=== PATIENT | male | born 1935 | race African-American/Black ===

== ENCOUNTER 2022-11-29 00:24 | Inpatient (IN) | payer MEDICARE, OTHER ==
[~2022-11-29] VITALS: Ht 170.2 cm; Wt 56.7 kg
[2022-11-29] MEDS ORDERED: METO25XL PO (00:45)
[2022-11-29] MEDS ORDERED: CLOP75TA60 PO (00:45)
[2022-11-29] MEDS ORDERED: ATOR40TA28 PO (00:45)
[2022-11-29] MEDS ORDERED: FURO40 PO (00:45)
[2022-11-29] MEDS ORDERED: CHOL25TA4 PO (00:45)
[2022-11-29] MEDS ORDERED: APIX5TAB PO (00:45)
[2022-11-29] MEDS ORDERED: HYDR-4723 PO (00:45)
[2022-11-29] MEDS ORDERED: MELA5TAB40 PO (00:45)
[2022-11-29] MEDS ORDERED: FAMO20 PO (00:45)
[2022-11-29] MEDS ORDERED: SPIR-37 PO (00:45)
[2022-11-29] MEDS ORDERED: TAMS-13 PO (00:45)
[2022-11-29 01:25] LABS: BASOPHILS % (AUTO) 0.8 % (0.0-2.0); EOSINOPHILS % (AUTO) 1.2 % (1.0-6.0); HEMATOCRIT 36.3 % (41-53); HEMOGLOBIN 11.5 g/dL (13.5-17.5); LYMPHOCYTES # (AUTO) 1.6 K/uL (1.0-4.8); LYMPHOCYTES % (AUTO) 7.8 % (22.0-44.0); MEAN CORPUSCULAR HEMOGLOBIN 28.3 pg (26.0-34.0); MEAN CORPUSCULAR HGB CONC 31.7 G/dL (31.0-37.0); MEAN CORPUSCULAR VOLUME 89 fL (80-100); MONOCYTES # (AUTO) 0.5 K/uL (0.1-1.0); MONOCYTES % (AUTO) 2.7 % (2.0-9.0); NEUTROPHILS # (AUTO) 17.5 K/uL (1.8-7.7); PLATELET COUNT (AUTO) 464 K/uL (150-450); RED BLOOD CELL COUNT(AUTO) 4.07 MIL/uL (4.50-5.90); RED CELL DISTRIBUTION WIDTH 15.5 % (11.5-14.5)
[2022-11-29 01:26] LABS: NEUTROPHILS % (AUTO) 87.5 % (40.0-70.0)
[2022-11-29 01:33] LABS: ANION GAP 10 mmol/L (8-16); CALCIUM, TOTAL 8.9 mg/dL (8.8-10.5); CARBON DIOXIDE 25 mmol/L (22-29); CHLORIDE 97 mmol/L (98-107); CREATININE 1.29 mg/dL (0.60-1.30); GLOMERULAR FILTR. RATE CALC > 60 mL/min (>60); GLUCOSE,RANDOM 116 mg/dL (70-110); POTASSIUM 4.2 mmol/L (3.5-5.1); SODIUM SERUM 132 mmol/L (136-145)
[2022-11-29 01:38] LABS: PROTHROMBIN TIME 11.1 SEC (9.4-11.6)
[2022-11-29 01:49] LABS: B-TYPE NATRIURETIC PEPTIDE 1230 pg/mL (0-100)
[2022-11-29 01:59] LABS: ALANINE AMINOTRANSFERASE 62 U/L (12-78); ALBUMIN 2.4 g/dL (3.4-5.0); ALKALINE PHOSPHATASE 153 U/L (46-116); ASPARTATE AMINOTRANSFERASE 58 U/L (15-37); BILIRUBIN,TOTAL 0.4 mg/dL (0.1-1.0); CREATINE KINASE, TOTAL ONLY 75 U/L (39-308); LIPASE 206 U/L (73-393); TOTAL PROTEIN, SERUM 6.9 g/dL (6.4-8.2)
[2022-11-29] MEDS ORDERED: AMIODARONE HCL 360 MG in DEXTROSE 5%-WATER 242.8 ML IV ONE (02:15)
[2022-11-29] MEDS ORDERED: ONDANSETRON HCL 4 MG/2 ML VIAL IVP PRN (04:00)
[2022-11-29] MEDS ORDERED: ACETAMINOPHEN 325 MG TABLET PO PRN (04:00)
[2022-11-29] MEDS ORDERED: MELATONIN 5 MG TABLET PO PRN (04:00)
[2022-11-29] MEDS ORDERED: AMIODARONE HCL 50 MG/ML 3 ML VIAL IV ONE (04:15)
[2022-11-29 04:26] LABS: COVID AG,FIA SOURCE NASOPHARYNGEAL
[2022-11-29] MEDS ORDERED: AMIODARONE HCL IV ONE (04:30)
[2022-11-29] MEDS ORDERED: WATER IV ONE (04:30)
[2022-11-29] MEDS ORDERED: AMIODARONE HCL 150 MG in DEXTROSE 5%-WATER 97 ML IV ONE (04:30)
[2022-11-29] MEDS ORDERED: DEXTROSE 5% IV ONE (04:30)
[2022-11-29] MEDS ORDERED: METOPROLOL SUCCINATE 25 MG ER TABLET PO SCH (04:30)
[2022-11-29] MEDS ORDERED: MAGNESIUM SULFATE 4 GM/WATER 100 ML IV PRN (04:45)
[2022-11-29] MEDS ORDERED: POTASSIUM CHLORIDE 20 MEQ ER TABLET PO PRN (04:45)
[2022-11-29] MEDS ORDERED: MAGNESIUM SULFATE 2 GM/WATER 50 ML IV PRN (04:45)
[2022-11-29] MEDS ORDERED: MAGNESIUM OXIDE 400 MG TABLET PO PRN (04:45)
[2022-11-29] MEDS ORDERED: POTASSIUM CHL 10 MEQ/WATER 50 ML IV PRN (04:45)
[2022-11-29] MEDS ORDERED: METOPROLOL TARTRATE 25 MG TABLET PO SCH (05:30)
[2022-11-29] MEDS: METOPROLOL TARTRATE 25 MG TABLET PO SCH ×2 (06:15→20:20)
[2022-11-29] MEDS: CefTRIAXone 1 GM/DEXTROSE 50 ML IV SCH (06:15)
[2022-11-29] MEDS ORDERED: HEPARIN SODIUM,PORCINE 5,000 UNITS/ML VIAL SQ SCH (08:00)
[2022-11-29] MEDS ORDERED: AMIODARONE HCL 540 MG in DEXTROSE 5%-WATER 239.2 ML IV ONE ×2 (08:15→10:00)
[2022-11-29] MEDS ORDERED: CefTRIAXone 1 GM/DEXTROSE 50 ML IV SCH (09:30)
[2022-11-29] MEDS: ATORVASTATIN CALCIUM 40 MG TABLET PO SCH (11:06)
[2022-11-29] MEDS: CHOLECALCIFEROL (VIT D3) 1,000 UNITS [25 MCG] TABLET PO SCH (11:06)
[2022-11-29] MEDS: FUROSEMIDE 20 MG/2 ML VIAL IVP SCH ×2 (11:06→20:20)
[2022-11-29] MEDS: DOCUSATE SODIUM 100 MG CAPSULE PO SCH ×2 (11:06→20:20)
[2022-11-29] MEDS: CLOPIDOGREL BISULFATE 75 MG TABLET PO SCH (11:06)
[2022-11-29] MEDS: APIXABAN 5 MG TABLET PO SCH ×2 (11:06→20:20)
[2022-11-29] MEDS: FAMOTIDINE 20 MG TABLET PO SCH (11:06)
[2022-11-29] MEDS: SPIRONOLACTONE 25 MG TABLET PO SCH (11:11)
[2022-11-29 12:00] VITALS: BP 126/76
[2022-11-29] MEDS ORDERED: HYALURONIDASE, HUMAN RECOMB. 150 UNITS/ML ID ONE ×3 (12:00→13:00)
[2022-11-29] MEDS: DOXYCYCLINE HYCLATE 100 MG in DEXTROSE 5%-WATER 100 ML IV SCH (14:00)
[2022-11-29] MEDS ORDERED: SODIUM CHLORIDE 0.9% 250 ML IV ONE (16:30)
[2022-11-29 20:11] VITALS: BP 118/86
[2022-11-29] MEDS: TAMSULOSIN HCL 0.4 MG CAPSULE PO SCH (20:20)
[2022-11-30] VITALS (7 sets, daily range): BP systolic 96–106; BP diastolic 50–61
[2022-11-30] MEDS: DOXYCYCLINE HYCLATE 100 MG in DEXTROSE 5%-WATER 100 ML IV SCH ×2 (01:33→14:13)
[2022-11-30] MEDS ORDERED: AMIODARONE HCL 750 MG in DEXTROSE 5%-WATER 485 ML IV SCH ×2 (02:30→04:00)
[2022-11-30] MEDS: CefTRIAXone 1 GM/DEXTROSE 50 ML IV SCH (04:54)
[2022-11-30] MEDS: METOPROLOL TARTRATE 25 MG TABLET PO SCH ×2 (08:19→20:43)
[2022-11-30] MEDS: ATORVASTATIN CALCIUM 40 MG TABLET PO SCH (08:19)
[2022-11-30] MEDS: SPIRONOLACTONE 25 MG TABLET PO SCH (08:19)
[2022-11-30] MEDS: CLOPIDOGREL BISULFATE 75 MG TABLET PO SCH (08:19)
[2022-11-30] MEDS: CHOLECALCIFEROL (VIT D3) 1,000 UNITS [25 MCG] TABLET PO SCH (08:19)
[2022-11-30] MEDS: FUROSEMIDE 20 MG/2 ML VIAL IVP SCH ×2 (08:19→20:43)
[2022-11-30] MEDS: FAMOTIDINE 20 MG TABLET PO SCH (08:19)
[2022-11-30] MEDS: APIXABAN 5 MG TABLET PO SCH (08:19)
[2022-11-30] MEDS: DOCUSATE SODIUM 100 MG CAPSULE PO SCH ×2 (08:19→20:43)
[2022-11-30 10:12] LABS: BASOPHILS % (AUTO) 0.6 % (0.0-2.0); EOSINOPHILS % (AUTO) 0.7 % (1.0-6.0); HEMATOCRIT 34.3 % (41-53); HEMOGLOBIN 10.8 g/dL (13.5-17.5); LYMPHOCYTES # (AUTO) 0.9 K/uL (1.0-4.8); MEAN CORPUSCULAR HEMOGLOBIN 28.1 pg (26.0-34.0); MEAN CORPUSCULAR HGB CONC 31.6 G/dL (31.0-37.0); MEAN CORPUSCULAR VOLUME 89 fL (80-100); MONOCYTES # (AUTO) 0.5 K/uL (0.1-1.0); MONOCYTES % (AUTO) 5.7 % (2.0-9.0); NEUTROPHILS # (AUTO) 7.6 K/uL (1.8-7.7); PLATELET COUNT (AUTO) 440 K/uL (150-450); RED BLOOD CELL COUNT(AUTO) 3.86 MIL/uL (4.50-5.90); RED CELL DISTRIBUTION WIDTH 15.3 % (11.5-14.5)
[2022-11-30 10:32] LABS: ALANINE AMINOTRANSFERASE 49 U/L (12-78); ALBUMIN 2.3 g/dL (3.4-5.0); ALKALINE PHOSPHATASE 134 U/L (46-116); ANION GAP 9 mmol/L (8-16); ASPARTATE AMINOTRANSFERASE 44 U/L (15-37); BILIRUBIN,TOTAL 0.6 mg/dL (0.1-1.0); CALCIUM, TOTAL 8.2 mg/dL (8.8-10.5); CARBON DIOXIDE 25 mmol/L (22-29); CHLORIDE 98 mmol/L (98-107); CREATININE 1.03 mg/dL (0.60-1.30); GLOMERULAR FILTR. RATE CALC > 60 mL/min (>60); GLUCOSE,RANDOM 102 mg/dL (70-110); POTASSIUM 3.6 mmol/L (3.5-5.1); SODIUM SERUM 132 mmol/L (136-145); TOTAL PROTEIN, SERUM 6.3 g/dL (6.4-8.2)
[2022-11-30] MEDS ORDERED: SODIUM CHLORIDE 0.9% 250 ML IV ONE (14:08)
[2022-11-30] MEDS: APIXABAN 2.5 MG TABLET PO SCH (20:43)
[2022-11-30] MEDS: AMIODARONE HCL 200 MG TABLET PO SCH (20:43)
[2022-11-30] MEDS: TAMSULOSIN HCL 0.4 MG CAPSULE PO SCH (20:43)
[2022-12-01] VITALS (7 sets, daily range): BP systolic 92–140; BP diastolic 54–72
[2022-12-01] MEDS: DOXYCYCLINE HYCLATE 100 MG in DEXTROSE 5%-WATER 100 ML IV SCH ×2 (02:15→15:24)
[2022-12-01] MEDS: CefTRIAXone 1 GM/DEXTROSE 50 ML IV SCH (06:09)
[2022-12-01 06:53] LABS: ALANINE AMINOTRANSFERASE 49 U/L (12-78); ALBUMIN 2.2 g/dL (3.4-5.0); ALKALINE PHOSPHATASE 144 U/L (46-116); ANION GAP 2 mmol/L (8-16); ASPARTATE AMINOTRANSFERASE 47 U/L (15-37); BILIRUBIN,TOTAL 0.4 mg/dL (0.1-1.0); CALCIUM, TOTAL 8.4 mg/dL (8.8-10.5); CARBON DIOXIDE 30 mmol/L (22-29); CHLORIDE 98 mmol/L (98-107); CREATININE 1.23 mg/dL (0.60-1.30); GLOMERULAR FILTR. RATE CALC > 60 mL/min (>60); GLUCOSE,RANDOM 93 mg/dL (70-110); POTASSIUM 4.3 mmol/L (3.5-5.1); SODIUM SERUM 130 mmol/L (136-145); TOTAL PROTEIN, SERUM 5.9 g/dL (6.4-8.2)
[2022-12-01] MEDS: FUROSEMIDE 20 MG/2 ML VIAL IVP SCH ×2 (10:23→21:00)
[2022-12-01] MEDS: SPIRONOLACTONE 25 MG TABLET PO SCH (10:23)
[2022-12-01] MEDS: APIXABAN 2.5 MG TABLET PO SCH ×2 (10:24→20:39)
[2022-12-01] MEDS: METOPROLOL TARTRATE 25 MG TABLET PO SCH ×2 (10:24→21:59)
[2022-12-01] MEDS: ATORVASTATIN CALCIUM 40 MG TABLET PO SCH (10:24)
[2022-12-01] MEDS: DOCUSATE SODIUM 100 MG CAPSULE PO SCH ×2 (10:24→20:39)
[2022-12-01] MEDS: CHOLECALCIFEROL (VIT D3) 1,000 UNITS [25 MCG] TABLET PO SCH (10:25)
[2022-12-01] MEDS: AMIODARONE HCL 200 MG TABLET PO SCH ×2 (10:25→21:58)
[2022-12-01] MEDS: CLOPIDOGREL BISULFATE 75 MG TABLET PO SCH (10:25)
[2022-12-01] MEDS: FAMOTIDINE 20 MG TABLET PO SCH (10:25)
[2022-12-01] MEDS: TAMSULOSIN HCL 0.4 MG CAPSULE PO SCH (20:39)
[2022-12-02 00:22] VITALS: BP 112/62
[2022-12-02] MEDS: CefTRIAXone 1 GM/DEXTROSE 50 ML IV SCH (01:59)
[2022-12-02] MEDS: DOXYCYCLINE HYCLATE 100 MG in DEXTROSE 5%-WATER 100 ML IV SCH ×2 (02:38→15:07)
[2022-12-02 05:47] VITALS: BP 100/54
[2022-12-02 08:00] VITALS: BP 99/54
[2022-12-02] MEDS: APIXABAN 2.5 MG TABLET PO SCH (08:10)
[2022-12-02] MEDS: ATORVASTATIN CALCIUM 40 MG TABLET PO SCH (08:10)
[2022-12-02] MEDS: DOCUSATE SODIUM 100 MG CAPSULE PO SCH (08:10)
[2022-12-02] MEDS: AMIODARONE HCL 200 MG TABLET PO SCH (08:12)
[2022-12-02] MEDS: METOPROLOL TARTRATE 25 MG TABLET PO SCH (08:12)
[2022-12-02] MEDS: SPIRONOLACTONE 25 MG TABLET PO SCH (08:12)
[2022-12-02] MEDS: CLOPIDOGREL BISULFATE 75 MG TABLET PO SCH (08:13)
[2022-12-02] MEDS: CHOLECALCIFEROL (VIT D3) 1,000 UNITS [25 MCG] TABLET PO SCH (08:13)
[2022-12-02] MEDS: FAMOTIDINE 20 MG TABLET PO SCH (08:13)
[2022-12-02] MEDS: FUROSEMIDE 20 MG/2 ML VIAL IVP SCH (09:00)
[2022-12-02 11:50] VITALS: BP 104/52
[2022-12-02 11:50] LABS: BASOPHILS % (AUTO) 0.6 % (0.0-2.0); EOSINOPHILS % (AUTO) 0.4 % (1.0-6.0); HEMATOCRIT 32.9 % (41-53); HEMOGLOBIN 10.6 g/dL (13.5-17.5); LYMPHOCYTES # (AUTO) 1.3 K/uL (1.0-4.8); LYMPHOCYTES % (AUTO) 11.2 % (22.0-44.0); MEAN CORPUSCULAR HEMOGLOBIN 28.6 pg (26.0-34.0); MEAN CORPUSCULAR HGB CONC 32.2 G/dL (31.0-37.0); MEAN CORPUSCULAR VOLUME 89 fL (80-100); MONOCYTES # (AUTO) 0.8 K/uL (0.1-1.0); MONOCYTES % (AUTO) 6.7 % (2.0-9.0); NEUTROPHILS # (AUTO) 9.5 K/uL (1.8-7.7); NEUTROPHILS % (AUTO) 81.1 % (40.0-70.0); PLATELET COUNT (AUTO) 416 K/uL (150-450); RED BLOOD CELL COUNT(AUTO) 3.71 MIL/uL (4.50-5.90)
[2022-12-02 12:09] LABS: ALANINE AMINOTRANSFERASE 44 U/L (12-78); ALBUMIN 2.2 g/dL (3.4-5.0); ALKALINE PHOSPHATASE 138 U/L (46-116); ANION GAP 1 mmol/L (8-16); ASPARTATE AMINOTRANSFERASE 40 U/L (15-37); BILIRUBIN,TOTAL 0.3 mg/dL (0.1-1.0); CALCIUM, TOTAL 8.7 mg/dL (8.8-10.5); CARBON DIOXIDE 31 mmol/L (22-29); CHLORIDE 99 mmol/L (98-107); CREATININE 1.28 mg/dL (0.60-1.30); GLOMERULAR FILTR. RATE CALC > 60 mL/min (>60); GLUCOSE,RANDOM 98 mg/dL (70-110); POTASSIUM 4.7 mmol/L (3.5-5.1); SODIUM SERUM 131 mmol/L (136-145)
[2022-12-02 16:35] VITALS: BP 104/54
[2022-12-02 20:01] VITALS: BP 116/60
== END 2022-12-02 21:03 | DRG 280 ==
LOC: EMS 00:29 → UNDOADMIN 05:07 → 6S 05:07 → ICU 06:19 → 5S 18:50
PROVIDERS: ADMIT Internal Medicine; ATTEND Internal Medicine
PROC: 05H933Z Insertion of Infusion Device into Right Brachial Vein, Percutaneous Approach (ICD-10-PCS; principal; 2022-11-29)
DX: I50.23 Acute on chronic systolic (congestive) heart failure (principal); G93.41 Metabolic encephalopathy; I21.A1 Myocardial infarction type 2; J96.01 Acute respiratory failure with hypoxia; R65.11 Systemic inflammatory response syndrome (SIRS) of non-infectious origin with acute organ dysfunction; J18.9 Pneumonia, unspecified organism; I47.20 Ventricular tachycardia, unspecified; E87.20 Acidosis, unspecified; I42.9 Cardiomyopathy, unspecified; Z20.822 Contact with and (suspected) exposure to COVID-19; E11.9 Type 2 diabetes mellitus without complications; I25.10 Atherosclerotic heart disease of native coronary artery without angina pectoris; I48.0 Paroxysmal atrial fibrillation; F03.90 Unspecified dementia, unspecified severity, without behavioral disturbance, psychotic disturbance, mood disturbance, and anxiety; Z79.899 Other long term (current) drug therapy; Z79.01 Long term (current) use of anticoagulants; I25.2 Old myocardial infarction; Z85.46 Personal history of malignant neoplasm of prostate
CPT/HCPCS: 36245; 36569; 71045; 76937; 80053; 82550; 83605; 83690; 83735; 83880; 84145; 84484; 85025; 85610; 85730; 87040; 87081; 93005; 93306; 97163; 99291; J0282; J0696; J1940; J2405; J3473; J3490; J7050; J7060; 36415-L1; 36415-TC